=== PATIENT | female | born 1975 | race Caucasian/White ===

== ENCOUNTER 2017-02-07 12:41 | Emergency (ER) | payer SELFPAY ==
[~2017-02-07] VITALS: Ht 162.6 cm; Wt 78.0 kg
[2017-02-07 12:44] VITALS: BP 144/82; PULSE 92; RESP 15; TEMP 98.1; O2SAT 98
[2017-02-07] MEDS ORDERED: BUPR150XL PO (13:08)
[2017-02-07] MEDS ORDERED: ZOLO50TA PO (13:08)
[2017-02-07] MEDS ORDERED: IBUP1TAB7 PO (13:40)
--- NOTE | 2017-02-07 13:41 | PD ---
HPI Chief Complaint: Laceration/Skin Injury Time Seen by Provider: 13:22 Travel History International Travel<30 days: No Contact w/Intl Traveler<30days: No Traveled to known affect area: No History of Present Illness HPI 41-year-old female presents to the emergency Department with complaint of a laceration to her right thumb from a mandolin slicer today. Unknown tetanus status. Denies paresthesias, loss of sensation, decreased range of motion, decreased strength to the affected finger. Has wrapped the finger to control bleeding. Has not take any medications to alleviate her symptoms. Rates pain 8 /10. Describes it as a throbbing sensation. Pain is constant. Aggravated with palpation. Decreased while at rest. No known allergies. Has no other medical complaints. No other modifying factors or associated signs and symptoms. PFSH Past Medical History Anxiety: Yes Depression: Yes ?: Not Past Surgical History Surgical History: No Previous Surgery Social History Alcohol Use: Yes (rarely) Tobacco Use: No Allergies-Medications (Allergen,Severity, Reaction): Coded Allergies: No Known Allergies (Unverified , 02/07/17) Reported Meds & Prescriptions Reported Meds & Active Scripts Active Ibuprofen 800 Mg Tab 800 Mg PO Q6HR PRN Reported Wellbutrin Xl 24 HR (Bupropion HCl) 150 Mg Tab 150 Mg PO DAILY Zoloft (Sertraline HCl) 50 Mg Tab 50 Mg PO DAILY Review of Systems Except as stated in HPI: all other systems reviewed are Neg Physical Exam Narrative GENERAL: Well-nourished, well-developed female patient, in no acute distress SKIN: Warm and dry. Distal, lateral aspect of right thumb with skin avulsion that measures approximately 1 cm in diameter; thumb with full range of motion and good opposition; normal cap refill and sensory intact. HEAD: Atraumatic. Normocephalic. EYES: Pupils equal and round. No scleral icterus. No injection or drainage. ENT: Mucosa pink and moist. Airway patent. NECK: Trachea midline. CARDIOVASCULAR: Regular rate. RESPIRATORY: No accessory muscle use. GASTROINTESTINAL: Flat. MUSCULOSKELETAL: No obvious deformities. No clubbing. No cyanosis. No edema. NEUROLOGICAL: Awake and alert. Oriented 3. No obvious cranial nerve deficits. Motor grossly within normal limits. Normal speech. PSYCHIATRIC: Appropriate mood and affect; insight and judgment normal. Data Data Last Documented VS Vital Signs Date Time Temp Pulse Resp B/P (MAP) Pulse Ox O2 Delivery O2 Flow Rate FiO2 02/07/17 12:44 98.1 92 15 144/82 (102) 98 Orders Orders Ed Discharge Order (02/07/17 13:41) Ibuprofen (Motrin) (02/07/17 13:45) Tetanus/Diphtheria Tox Adult (Tetanus/Di (02/07/17 13:45) Wound Care (02/07/17 13:41) Gelatin 12 Mm/7 Mm Top (Gelfoam 12 Mm/7 (02/07/17 13:45) MDM Medical Decision Making Medical Screen Exam Complete: Yes Emergency Medical Condition: Yes Medical Record Reviewed: Yes Differential Diagnosis Cut, laceration, skin avulsion, abrasion Narrative Course 41-year-old female with a deep skin avulsion to the right thumb. Tetanus updated in the ER. Ibuprofen administered in the ER. Gelfoam and a bandage applied. Instructed patient to follow up with primary care provider. Patient verbalizes understanding and agreement with treatment plan. Patient is medically cleared and stable for discharge. Discussed reasons to return to the emergency department. Patient agrees with treatment plan. The patients vital signs are stable and the patient is stable for outpatient follow-up and treatment. Patient discharged home, stable and in no acute distress. Diagnosis Primary Impression: Avulsion of skin of finger Qualified Codes: S61.209A - Unspecified open wound of unspecified finger without damage to nail, initial encounter Referrals: [facility] Primary Care Physician Patient Instructions: Finger Laceration (ED), General Instructions, Skin Avulsion (ED) Additional Instructions: Keep area clean and dry Change the bandage in 2-3 days, or earlier if soiled Department or Tylenol as directed and as needed for pain Topical antibiotic as directed and as needed for wound care after bandage change in 2-3 days Follow-up with primary care provider Return to emergency department immediately with worsening of symptoms Med/Other Pt SpecificInfo: Prescription(s) given Scripts Ibuprofen (Ibuprofen) 800 Mg Tab 800 MG PO Q6HR Y for PAIN, #30 TAB 0 Refills Prov: Dorinda Prakash 02/07/17 Disposition: 01 DISCHARGE HOME Condition: Stable Dorinda Prakash Feb 07, 2017 13:41
[2017-02-07] MEDS ORDERED: GELATIN 12 MM/7 MM FOAM TOPICAL ONE (13:45)
[2017-02-07] MEDS ORDERED: TETANUS/DIPHTHERIA TOXOID ADULT 0.5 ML VIAL IM ONE (13:45)
[2017-02-07] MEDS ORDERED: IBUPROFEN 800 MG TAB PO ONE (13:45)
== END 2017-02-07 14:40 | disposition home or self-care (01) ==
LOC: NEPD 12:41
DX: S61.011A Laceration without foreign body of right thumb without damage to nail, initial encounter (principal); W26.8XXA Contact with other sharp object(s), not elsewhere classified, initial encounter; Z23 Encounter for immunization
CPT/HCPCS: 90471; 90714